=== PATIENT | female | born 1945 | race Caucasian/White ===

== ENCOUNTER 2024-07-17 11:33 | Inpatient (IN) | payer MEDICARE, BC ==
[2024-07-17] MEDS ORDERED: Sodium Chloride 0.9% 10 ML Syringe FLUSH PRN (11:39)
[2024-07-17] MEDS: LORazepam 2 MG/ML SDV IVPUSH ONE (11:49)
[2024-07-17] MEDS: Sodium Chloride 0.9% 500 ML IV ONE (11:49)
[2024-07-17 12:14] LABS: BASOPHILS PERCENT AUTO 0.3 % (0.2-1.2); EOSINOPHILS ABSOLUTE AUTO 0.1 x10^3/uL (0.0-0.5); EOSINOPHILS PERCENT AUTO 1.2 % (0.0-4.0); HEMATOCRIT 37.2 % (33.0-47.0); HEMOGLOBIN 13.1 g/dL (12.0-16.0); IMMATURE GRAN ABSOLUTE AUTO 0.01 x10^3/uL (0.00-0.07); LYMPHOCYTES ABSOLUTE AUTO 1.4 x10^3/uL (1.0-4.8); MEAN CORPUSCULAR HEMOGLOBIN 33.9 pg (26.0-32.0); MEAN CORPUSCULAR HGB CONC 35.2 g/dL (32.0-36.0); MEAN CORPUSCULAR VOLUME 96.4 fL (78.0-93.0); MONOCYTES ABSOLUTE AUTO 0.5 x10^3/uL (0.0-0.8); MONOCYTES PERCENT AUTO 8.9 % (2.0-11.0); NEUTROPHILS PERCENT AUTO 66.4 % (50.0-80.0); PLATELET COUNT,PLT 153 x10^3/uL (130-400); RED BLOOD CELL COUNT 3.86 x10^6/uL (4.00-5.50); WHITE BLOOD CELL COUNT,WBC 6.1 x10^3/uL (4.0-10.0)
[2024-07-17 12:33] LABS: INR 1.1 (0.9-1.1); PROTHROMBIN TIME 10.9 SEC (8.9-11.5); PTT,PARTIAL THROMBOPLSTIN TIME 24.5 SEC (21.9-33.8)
[2024-07-17 12:35] LABS: LACTIC ACID 2.9 mmol/L (0.4-2.0)
[2024-07-17 12:38] LABS: HCO3 VENOUS,POC 21 mmol/L (22-29); O2 SATURATION VENOUS,POC 93 %; PCO2 VENOUS,POC 25 mmHg (41-51); PH VENOUS,POC 7.53 pH (7.32-7.43); PO2 VENOUS,POC 56 mmHg
[2024-07-17 12:44] LABS: A/G RATIO 1.17; ALANINE AMINOTRANSFERASE,ALT 25 U/L (14-59); ALBUMIN 3.4 g/dL (3.4-5.0); ALKALINE PHOSPHATASE 76 U/L (46-116); ASPARTATE AMNIOTRANSFERASE,AST 28 U/L (15-37); BILIRUBIN TOTAL 0.6 mg/dL (0.2-1.0); BLOOD UREA NITROGEN,BUN 14 mg/dL (7-18); CALCIUM 8.2 mg/dL (8.5-10.1); CARBON DIOXIDE,CO2 24 mmol/L (21-32); CHLORIDE,CL 101 mmol/L (98-107); EST CRCL DRUG DOSING (CG) 34.42 mL/min; GLUCOSE RANDOM 101 mg/dL (70-99); MAGNESIUM 1.4 mg/dL (1.8-2.4); POTASSIUM,K 3.9 mmol/L (3.5-5.1); PRO B-TYPE NATRIUR PEPT,BNPPRO 599 pg/mL (<=450); PROTEIN TOTAL,TP 6.3 g/dL (6.4-8.2); SODIUM,NA 139 mmol/L (136-145)
[2024-07-17 12:45] LABS: ANION GAP 17.9 mmol/L (5-15); C-REACTIVE PROTEIN < 0.50 mg/dL (<=0.50); ESTIMATED GFR 57 mL/min (>=60)
[2024-07-17] MEDS: Calcium Gluc in NaCl, ISO-OSM 1,000 MG in Premix Bag 1 BAG IV ONE ×3 (12:56→21:38)
[2024-07-17] MEDS: Iopamidol 612 MG/ML 100 ML Bottle IVPUSH ONE (13:56)
[2024-07-17] MEDS: Iopamidol 755 Mg/ML 100 ML Bottle IVPUSH ONE (13:57)
[2024-07-17] MEDS: cefTRIAXone 2 GM Vial IVPUSH ONE (14:19)
[2024-07-17] MEDS: Doxycycline Monohydrate 100 MG Cap PO ONE (14:19)
[2024-07-17] MEDS: Magnesium Sulfate/Water Premix 4 GM in Premix Bag 1 BAG IV ONE (15:24)
[2024-07-17] MEDS: Calcium Carbonate/Vitamin D3 1250 MG-5 MCG Tab PO SCH (18:49)
[2024-07-17] MEDS ORDERED: hydrOXYzine HCl 25 MG Tab PO PRN (20:32)
[2024-07-17] MEDS ORDERED: traMADol 50 MG Tab PO PRN (20:33)
[2024-07-17] MEDS ORDERED: Calcium Carbonate/Vitamin D3 1250 MG-5 MCG Tab PO SCH (21:00)
[2024-07-17] MEDS: Doxycycline Monohydrate 100 MG Cap PO SCH (21:57)
[2024-07-17] MEDS: Calcitriol 0.25 MCG Cap PO SCH (21:57)
[2024-07-17] MEDS: Niacin 500 MG Tab.ER PO SCH (21:57)
[2024-07-17] MEDS: Metoprolol Tartrate 50 MG Tab PO SCH (21:58)
[2024-07-17] MEDS: prednisoLONE Acetate 1% Ophth Susp 5 ML Bottle EYELF SCH ×2 (21:59→23:00)
[2024-07-17] MEDS: Sodium Chloride 0.9% 1,000 ML IV SCH (23:19)
[2024-07-18] MEDS: Levothyroxine 100 MCG Tab PO SCH (06:19)
[2024-07-18] MEDS: Pantoprazole 20 MG Tab, Delayed Release PO SCH (06:20)
[2024-07-18] MEDS: prednisoLONE Acetate 1% Ophth Susp 5 ML Bottle EYERT SCH (06:28)
[2024-07-18 07:09] LABS: BASE EXCESS ARTERIAL,POC 0 mmol/L ((-2)-3); HCO3 ARTERIAL,POC 22.9 mmol/L (21-28); O2 SATURATION ARTERIAL,POC 98.6 % (94-98); PCO2 ARTERIAL,POC 27 mmHg (35-48); PH ARTERIAL,POC 7.54 pH (7.35-7.45); PO2 ARTERIAL,POC 100 mmHg (83-108); TCO2 ARTERIAL,POC 22.4 mmol/L (22-29)
[2024-07-18 07:16] LABS: BASOPHILS PERCENT AUTO 0.7 % (0.2-1.2); EOSINOPHILS ABSOLUTE AUTO 0.1 x10^3/uL (0.0-0.5); EOSINOPHILS PERCENT AUTO 2.5 % (0.0-4.0); HEMATOCRIT 35.6 % (33.0-47.0); HEMOGLOBIN 12.4 g/dL (12.0-16.0); LYMPHOCYTES ABSOLUTE AUTO 1.2 x10^3/uL (1.0-4.8); LYMPHOCYTES PERCENT AUTO 27.4 % (25.0-50.0); MEAN CORPUSCULAR HEMOGLOBIN 33.7 pg (26.0-32.0); MEAN CORPUSCULAR HGB CONC 34.8 g/dL (32.0-36.0); MEAN CORPUSCULAR VOLUME 96.7 fL (78.0-93.0); MONOCYTES ABSOLUTE AUTO 0.4 x10^3/uL (0.0-0.8); MONOCYTES PERCENT AUTO 9.7 % (2.0-11.0); NEUTROPHILS ABSOLUTE AUTO 2.6 x10^3/uL (1.8-7.7); NEUTROPHILS PERCENT AUTO 59.7 % (50.0-80.0); PLATELET COUNT,PLT 143 x10^3/uL (130-400); RED BLOOD CELL COUNT 3.68 x10^6/uL (4.00-5.50); WHITE BLOOD CELL COUNT,WBC 4.3 x10^3/uL (4.0-10.0)
[2024-07-18 07:44] LABS: ALBUMIN 2.8 g/dL (3.4-5.0); BILIRUBIN TOTAL 0.4 mg/dL (0.2-1.0); CREATININE 0.8 mg/dL (0.55-1.02); EST CRCL DRUG DOSING (CG) 40.96 mL/min; MAGNESIUM 1.9 mg/dL (1.8-2.4); POTASSIUM,K 4.1 mmol/L (3.5-5.1); PROTEIN TOTAL,TP 5.6 g/dL (6.4-8.2)
[2024-07-18 07:56] LABS: ANION GAP 11.1 mmol/L (5-15); CALCIUM 8.1 mg/dL (8.5-10.1)
[2024-07-18] MEDS ORDERED: prednisoLONE Acetate 1% Ophth Susp 5 ML Bottle EYERT SCH (09:00)
[2024-07-18] MEDS: Magnesium Chloride 64 MG Tab.ER PO SCH (09:32)
[2024-07-18] MEDS: Enoxaparin 40 MG/0.4 ML Syringe SUBCUT SCH (09:32)
[2024-07-18 12:48] LABS: CALCIUM 8.6 mg/dL (8.5-10.1); TSH ULTRASENSITIVE 0.059 uIU/mL (0.358-3.74)
[2024-07-18] MEDS: cefTRIAXone 1 GM Vial IVPUSH SCH (13:59)
[2024-07-18] MEDS: prednisoLONE Acetate 1% Ophth Susp 5 ML Bottle EYELF SCH (21:14)
[2024-07-19] MEDS: Levothyroxine 88 MCG Tab PO SCH (06:14)
[2024-07-19] MEDS: prednisoLONE Acetate 1% Ophth Susp 5 ML Bottle EYERT SCH (06:15)
[2024-07-19 06:59] LABS: BASOPHILS ABSOLUTE AUTO 0.1 x10^3/uL (0.0-0.2); BASOPHILS PERCENT AUTO 1.1 % (0.2-1.2); EOSINOPHILS ABSOLUTE AUTO 0.2 x10^3/uL (0.0-0.5); EOSINOPHILS PERCENT AUTO 4.4 % (0.0-4.0); HEMATOCRIT 36.9 % (33.0-47.0); HEMOGLOBIN 12.9 g/dL (12.0-16.0); IMMATURE GRAN ABSOLUTE AUTO 0.01 x10^3/uL (0.00-0.07); LYMPHOCYTES ABSOLUTE AUTO 1.3 x10^3/uL (1.0-4.8); LYMPHOCYTES PERCENT AUTO 28.1 % (25.0-50.0); MEAN CORPUSCULAR HEMOGLOBIN 33.6 pg (26.0-32.0); MEAN CORPUSCULAR VOLUME 96.1 fL (78.0-93.0); MONOCYTES ABSOLUTE AUTO 0.6 x10^3/uL (0.0-0.8); MONOCYTES PERCENT AUTO 12.4 % (2.0-11.0); NEUTROPHILS ABSOLUTE AUTO 2.5 x10^3/uL (1.8-7.7); NEUTROPHILS PERCENT AUTO 53.8 % (50.0-80.0); PLATELET COUNT,PLT 147 x10^3/uL (130-400); RED BLOOD CELL COUNT 3.84 x10^6/uL (4.00-5.50); WHITE BLOOD CELL COUNT,WBC 4.6 x10^3/uL (4.0-10.0)
[2024-07-19 07:17] LABS: A/G RATIO 0.97; ALBUMIN 2.9 g/dL (3.4-5.0); BILIRUBIN TOTAL 0.4 mg/dL (0.2-1.0); CALCIUM 9.8 mg/dL (8.5-10.1); CREATININE 0.9 mg/dL (0.55-1.02); EST CRCL DRUG DOSING (CG) 36.41 mL/min; POTASSIUM,K 4.4 mmol/L (3.5-5.1); PROTEIN TOTAL,TP 5.9 g/dL (6.4-8.2)
[2024-07-19 07:18] LABS: ANION GAP 11.4 mmol/L (5-15)
[2024-07-19] MEDS: Sodium Chloride 0.9% 10 ML Syringe FLUSH PRN (08:23)
[2024-07-19 12:36] VITALS: BP 123/69; PULSE 65
[2024-07-20 05:06] LABS: THYROXINE, TOTAL T4 9.05 ug/dL (4.50-11.70)
[2024-07-20 11:06] LABS: IONIZED CA@PH7.4 1.18 mmol/L (1.09-1.30); IONIZED CALCIUM 1.16 mmol/L (1.09-1.30)
[2024-07-22] MEDS ORDERED: Alendronate 70 MG Tab PO SCH (07:00)
== END 2024-07-19 13:15 | disposition home or self-care (01) | DRG 640 ==
LOC: VM.ED 11:33 → VM.MS 14:25 → UNDOADMIN 14:52 → UNDODISIN 07-19 13:15
PROVIDERS: ADMIT Nurse Practitioner Family; ATTEND Nurse Practitioner Family
PROC: 4A033R1 Measurement of Arterial Saturation, Peripheral, Percutaneous Approach (ICD-10-PCS; principal; 2024-07-17)
DX: E83.51 Hypocalcemia (principal); J18.9 Pneumonia, unspecified organism; F33.9 Major depressive disorder, recurrent, unspecified; E03.9 Hypothyroidism, unspecified; H91.90 Unspecified hearing loss, unspecified ear; Z68.23 Body mass index [BMI] 23.0-23.9, adult; H54.7 Unspecified visual loss; E78.00 Pure hypercholesterolemia, unspecified; Z88.6 Allergy status to analgesic agent; Z91.018 Allergy to other foods; I10 Essential (primary) hypertension; K21.9 Gastro-esophageal reflux disease without esophagitis; M19.90 Unspecified osteoarthritis, unspecified site; G43.909 Migraine, unspecified, not intractable, without status migrainosus; E66.9 Obesity, unspecified; F41.9 Anxiety disorder, unspecified; E83.42 Hypomagnesemia; M81.0 Age-related osteoporosis without current pathological fracture; E89.0 Postprocedural hypothyroidism; I08.3 Combined rheumatic disorders of mitral, aortic and tricuspid valves; J02.9 Acute pharyngitis, unspecified; Z88.8 Allergy status to other drugs, medicaments and biological substances; Z91.048 Other nonmedicinal substance allergy status; Z91.012 Allergy to eggs; Z79.899 Other long term (current) drug therapy; Z87.19 Personal history of other diseases of the digestive system; Z98.890 Other specified postprocedural states; Z68.24 Body mass index [BMI] 24.0-24.9, adult
CPT/HCPCS: 36415; 36600; 71045; 71046; 71275; 80053; 82310; 82330; 82803; 83605; 83735; 83880; 84100; 84436; 84443; 84481; 84484; 85025; 85379; 85610; 85730; 86140; 93005; 93010; 96361; 96365; 96375; 96376; 99284; 99285-25; A9270-GY; J0696; J1650; J2060; J3475; J3490; J7030; Q9967